=== PATIENT | female | born 2000 | race Caucasian/White ===

== ENCOUNTER 2022-01-23 21:03 | Outpatient (CLI) | payer OTHER ==
[~2022-01-23 21:03] MED LIST: BENTYL 20MG TAB20 MG PO; CLINDAMYCIN 1%-30 GM TP; COLACE 100MG C100 MG PO; IBU600 MG PO; IBUPROFEN600 MG PO; NORCO 5-325 TA1 EACH PO; REGLAN10 MG PO; [UNRECOGNIZED DRUG - OTHER] TOP
== END 2022-01-24 01:18 | disposition home or self-care (01) ==
LOC: GENOP 21:03
DX: O47.1 False labor at or after 37 completed weeks of gestation (principal); O99.891 Other specified diseases and conditions complicating pregnancy; N89.8 Other specified noninflammatory disorders of vagina; Z3A.38 38 weeks gestation of pregnancy
CPT/HCPCS: 83518; G0463

== ENCOUNTER 2022-01-27 05:29 | Inpatient (IN) | payer OTHER ==
[~2022-01-27] VITALS: Ht 172.7 cm; Wt 72.1 kg
[2022-01-27] MEDS ORDERED: VALTREX 500 MG500 MG PO (06:21)
[2022-01-27 06:22] LABS: HEMOGLOBIN 10.7 gm/dl (12.3-15.3); RED BLOOD COUNT 3.42 M/UL (4.00-5.10); WHITE BLOOD COUNT 10.5 K/UL (4.5-11.0)
[2022-01-27] MEDS ORDERED: HYDROCODON-ACE1 EAC4 PO (14:35)
[2022-01-27] MEDS ORDERED: COLACE 100MG C100 MG PO (14:35)
[2022-01-27] MEDS ORDERED: IBUPROFEN800 MG PO (14:35)
[2022-01-28 04:54] LABS: HEMOGLOBIN 9.1 gm/dl (12.3-15.3)
== END 2022-01-29 11:28 | disposition home or self-care (01) | DRG 807 ==
LOC: OB 05:29
PROVIDERS: Obstetrics & Gynecology; ADMIT Obstetrics & Gynecology
PROC: 10E0XZZ Delivery of Products of Conception, External Approach (ICD-10-PCS; principal; 2022-01-27)
PROC: 10907ZC Drainage of Amniotic Fluid, Therapeutic from Products of Conception, Via Natural or Artificial Opening (ICD-10-PCS; 2022-01-27)
PROC: 4A1HXCZ Monitoring of Products of Conception, Cardiac Rate, External Approach (ICD-10-PCS; 2022-01-27)
PROC: 3E0234Z Introduction of Serum, Toxoid and Vaccine into Muscle, Percutaneous Approach (ICD-10-PCS; 2022-01-27)
DX: O98.52 Other viral diseases complicating childbirth (principal); Z37.0 Single live birth; Z3A.39 39 weeks gestation of pregnancy; Z87.440 Personal history of urinary (tract) infections; Z20.822 Contact with and (suspected) exposure to COVID-19; O99.824 Streptococcus B carrier state complicating childbirth; B00.9 Herpesviral infection, unspecified; O66.0 Obstructed labor due to shoulder dystocia; Z98.890 Other specified postprocedural states; Z28.310 Unvaccinated for COVID-19; Z82.69 Family history of other diseases of the musculoskeletal system and connective tissue; Z82.5 Family history of asthma and other chronic lower respiratory diseases; Z81.8 Family history of other mental and behavioral disorders; Z82.49 Family history of ischemic heart disease and other diseases of the circulatory system; Z23 Encounter for immunization
CPT/HCPCS: 36415; 81001; 82800; 85014; 85018; 85025; 90715; J0595; J2540; J2590; J7070; J7120; U0002